=== PATIENT | male | born 1970 | race Two or more races ===

== ENCOUNTER 2022-08-02 06:05 | Day surgery (SDC) | payer MEDICARE, MEDICAID ==
[~2022-08-02] VITALS: Ht 165.1 cm; Wt 92.4 kg
[2022-08-02] VITALS (15 sets, daily range): BP systolic 116–151; BP diastolic 76–99
[~2022-08-02 06:05] MED LIST: ATOR10TA70 PO; GABA-338 PO; METF-1203 PO; OMEP-84 PO; ceFAZolin inj. 2,000 MG in dextrose 5%-water 100 ML IV ONE; famotidine 20mg tablet PO ONE; ringers solution, lacted 1,000 ML IV SCH
[2022-08-02] MEDS ORDERED: BUPIVACAINE liposomal/PF 13.3 MG/ML vial IM ONE (06:40)
[2022-08-02] MEDS ORDERED: LIDOcaine 1% 30ml preserv. free vial ONE (06:40)
[2022-08-02] MEDS ORDERED: NPH, human insulin isophane inj. SQ ONE (08:25)
[2022-08-02] MEDS ORDERED: insulin regular, human 10 units/0.1 ml syringe SQ ONE ×2 (08:45)
[2022-08-02] MEDS ORDERED: sevoflurane 250ml liquid IH ONE (10:10)
[2022-08-02] MEDS ORDERED: midazolam 1 mg/ML 2ml injection ONE (10:17)
[2022-08-02] MEDS ORDERED: fentaNYL /PF 50mcg/ml 5ml ampule ONE (10:17)
[2022-08-02] MEDS ORDERED: propofol inj 20 ML IV ONE (10:40)
[2022-08-02] MEDS ORDERED: rocuronium 10mg/ml inj IV ONE (10:40)
[2022-08-02] MEDS ORDERED: dexamethasone sod phosphate 4mg/ml inj. ONE (10:40)
[2022-08-02] MEDS ORDERED: LIDOcaine 2% (20mg/ml) 5ml vial ONE (10:40)
[2022-08-02] MEDS ORDERED: ondansetron/PF 4mg/2ml inj ONE (10:40)
[2022-08-02] MEDS: BUPIVAcaine/PF 2.5 mg/ml (0.25%) 30ml vial ONE ×2 (10:50→10:52)
[2022-08-02] MEDS ORDERED: neostigmine methylsulfate 1 MG/ML 10ml vial ONE (11:54)
[2022-08-02] MEDS ORDERED: glycopyrrolate 0.2mg/ml inj ONE (11:54)
--- NOTE | 2022-08-02 12:15 | NUR ---
Received from OR via [facility], accompanied by Anesthesiologist DR GUERRA and report given by Anesthesiolgist. PT IS GROGGY, RESPONDS TO VERBAL STIMULI. PT PLACED ON BEDSIDE MONITOR, VSS. PT RECEIVING 8L O2 TO MASK AND TOLERATING WELL WITH O2 SAT > 97%. WILL TITRATE DOWN PT TOLERATES. PT HAS 20G PIV TO RT HAND WITH LR INFUSING ORDERED. PT HAS 3 BAND-AIDES TO ABD THAT ARE CDI. ABD BINDER IN PLACE. PT DENIES PAIN AT THIS TIME. WILL CONTINUE TO ASSESS.
[2022-08-02] MEDS ORDERED: ringers solution, lacted 1,000 ML IV SCH (13:00)
[2022-08-02] MEDS ORDERED: proCHLORperazine 10 MG/2 ml inj IV PRN (13:00)
[2022-08-02] MEDS ORDERED: ondansetron/PF 4mg/2ml inj IV PRN (13:00)
[2022-08-02] MEDS ORDERED: HYDROmorphone/PF 0.2 MG/ML SYRINGE IV PRN (13:00)
[2022-08-02] MEDS: morphine 2 MG/ML inj. syringe IV PRN ×2 (13:15→14:52)
[2022-08-02] MEDS ORDERED: diphenhydrAMINE 25mg capsule PO ONE (13:55)
[2022-08-02] MEDS ORDERED: oxyCODONE/APAP 5-325mg tablet PO ONE (13:55)
--- NOTE | 2022-08-02 14:39 | NUR ---
PATIENT TAKEN OFF MONITOR AND IS AT BEDSIDE TO HELP PT GET DRESSED.
--- NOTE | 2022-08-02 14:59 | NUR ---
PT GOT DRESSED AND BECAME PAINFUL WITH MOVEMENT. 2MG PRN MORPHINE GIVEN AND WILL CONTINUE TO WATCH AND ASSESS BEFORE D/C HOME. PT STATES PAIN DOES FEEL BETTER AFTER MORPHINE.
--- NOTE | 2022-08-02 15:25 | NUR ---
ALL DISCHARGE CRITERIA HAS BEEN MET. VSS, PAIN AT A TOLERABLE LEVEL, VOIDING AND ABLE TO SAFELY AMBULATE AND TRANSFER SELF. IV TAKEN OUT WITHOUT ANY COMPLICATIONS. ALL DISCHARGE INSTRUCTIONS COVERED WITH PATIENT AND ALL QUESTIONS ANSWERED. PATIENT TAKEN OUT VIA WHEELCHAIR TO PERSONAL VEHICLE WHERE DROVE PATIENT HOME.
== END 2022-08-02 15:10 | disposition home or self-care (01) ==
LOC: PAS 06:05
PROVIDERS: ATTEND Surgery
DX: K43.0 Incisional hernia with obstruction, without gangrene (principal); K21.9 Gastro-esophageal reflux disease without esophagitis; E11.9 Type 2 diabetes mellitus without complications; K66.0 Peritoneal adhesions (postprocedural) (postinfection); Z20.822 Contact with and (suspected) exposure to COVID-19; Z98.890 Other specified postprocedural states; Z79.899 Other long term (current) drug therapy
CPT/HCPCS: 49657; 64488; 82948; 87811; 93005; C1781; C9290; J0690; J1100; J1815; J2250; J2270; J2405; J2704; J2710; J3010; J3490; J7030; J7060; J7120; Q0163; Z7506; Z7508; Z7512; A4215; A4618